=== PATIENT | female | born 1950 | race Caucasian/White ===

== ENCOUNTER 2021-10-22 04:33 | Emergency (ER) | payer MEDICARE, MEDICAID, SELFPAY ==
[2021-10-22] VITALS (7 sets, daily range): BP systolic 122–164; BP diastolic 57–93; PULSE 60–103; RESP 16–20; TEMP 36.4–36.8; O2SAT 96–99; BMI 26.2
--- NOTE | 2021-10-22 04:48 | ECG_ITS ---
APPROVED REPORT Exam: Resting ECG HR:93 bpm ECG Measurements Heart Rate 93 AXES QRSd 100 QRS 2 QT 351 T 79 QTc 402 Conclusion ATRIAL FIBRILLATION INCOMPLETE RIGHT BUNDLE BRANCH BLOCK [90+ ms QRS DURATION, TERMINAL R IN V1/V2, 40+ ms S IN I/aVL/V4/V5/V6] SEPTAL MYOCARDIAL INFARCTION , PROBABLY OLD [40+ ms Q WAVE IN V1/V2] ABNORMAL ECG UNCONFIRMED REPORT Electronically signed by : El German MD 10/23/2021 10:11:49
--- NOTE | 2021-10-22 04:57 | XR_ITS ---
PROCEDURE INFORMATION: Exam: XR Chest Exam date and time: 10/22/2021 5:25 AM Age: 71 years old Clinical indication: Sternal or substernal pain; Prior surgery; Additional info: Chest pain TECHNIQUE: Imaging protocol: XR of the chest. Views: 2 views. COMPARISON: No relevant prior studies available. FINDINGS: Lungs: No acute appearing consolidation or airspace disease. Pleural spaces: No pleural effusion. No pneumothorax. Heart/Mediastinum: No acute findings or cardiomegaly. Bones/joints: Status post sternotomy. Degenerative changes in the thoracic spine. IMPRESSION: No acute cardiopulmonary findings.
--- NOTE | 2021-10-22 05:02 | CT_ITS ---
PROCEDURE INFORMATION: Exam: CT Abdomen And Pelvis With Contrast Exam date and time: 10/22/2021 5:37 AM Age: 71 years old Clinical indication: Abdominal pain; Patient HX: Recently dx with UTI TECHNIQUE: Imaging protocol: Computed tomography of the abdomen and pelvis with contrast. Radiation optimization: All CT scans at this facility use at least one of these dose optimization techniques: automated exposure control; mA and/or kV adjustment per patient size (includes targeted exams where dose is matched to clinical indication); or iterative reconstruction. Contrast material: ISOVUE; Contrast volume: 75 ml; Contrast route: IV; COMPARISON: CR XR CHEST 2V 10/22/2021 5:25 AM FINDINGS: Liver: No acute findings. No mass. Gallbladder and bile ducts: The patient is status post cholecystectomy. Pancreas: No acute findings, focal abnormality or ductal dilation. Spleen: Calcified granulomata in the spleen. Adrenal glands: Normal. No mass. Kidneys and ureters: Multiple bilateral simple appearing renal cysts. No enhancing renal lesion. No obstructive uropathy. Stomach and bowel: Uncomplicated duodenal diverticulum. No bowel obstruction. Appendix: No evidence of appendicitis. Intraperitoneal space: No free air. No significant fluid collection. Arteries: Unremarkable. No abdominal aortic aneurysm. Lymph nodes: No pathologically enlarged lymph nodes. Urinary bladder: Borderline diffuse urinary bladder wall thickening. Reproductive: Unremarkable as visualized. Bones/joints: No acute fracture. Soft tissues: No acute findings. IMPRESSION: 1. Mild urinary bladder wall thickening which is consistent with patient's history. 2. Other chronic changes as described. COMMENTS: Consistent with the [employer]'s Incidental Findings Committee white paper (J [employer] 2018): Any incidental renal lesion less than 1 cm or classified as too small to characterize, or any incidental cystic renal lesion characterized as simple-appearing, is likely benign. No follow-up imaging is recommended for these lesions per consensus recommendations based on imaging criteria.
[2021-10-22 05:07] LABS: Basophils # 0.1 K/mm3 (0-0.2); Basophils % 1.2 % (0.1-2.0); Eosinophils # 0.2 K/mm3 (0.0-0.4); Eosinophils % 2.8 % (0.1-12.0); Hemoglobin 12.6 g/dL (12.2-16.2); Lymphocytes # 1.8 K/mm3 (0.7-4.5); Lymphocytes % 22.2 % (10-50); Mean Corpuscular HGB Conc 32.4 g/dL (31.8-35.4); Mean Corpuscular Hemoglobin 30.2 pg (27.0-31.2); Mean Corpuscular Volume 93.3 fl (81-99); Mean Platelet Volume 8.7 fl (7.4-10.4); Monocytes # 0.4 K/mm3 (0.1-1.0); Monocytes % 5.5 % (1.7-9.3); Neutrophils # 5.5 K/mm3 (1.8-7.8); Neutrophils % 68.2 % (37.0-80.0); Platelet Count 248 K/mm3 (142-424); Red Blood Count 4.18 M/mm3 (4.20-5.40); Red Cell Distribution Width 15.4 % (11.5-17.5)
[2021-10-22 05:13] LABS: Alanine Aminotransferase 26 U/L (12-78); Albumin Level 4.6 g/dl (3.5-5.0); Albumin/Globulin Ratio 1.5 (1.1-1.8); Alkaline Phosphatase 75 U/L (38-126); Anion Gap 11.6 mEq/L (5-15); Aspartate Amino Transferase 30 U/L (14-36); Bilirubin,Total 0.8 mg/dl (0.2-1.3); Blood Urea Nitrogen 20 mg/dl (7-17); Calcium 9.6 mg/dl (8.4-10.2); Carbon Dioxide 31 mmol/L (22.0-30.0); Chloride 98 mmol/L (98-107); Creatinine Clearance Estimated 39 mL/min (50-200); Estimated Glomerular Filt Rate 40 ml/min (>60); GFR (African American) 49 ML/MIN (>60); Glucose 128 mg/dl (74-100); Potassium 3.6 mmoL/L (3.5-5.1); Sodium 137 mmol/L (136-145); Total Protein,Serum 7.6 g/dl (6.3-8.2)
[2021-10-22 05:14] LABS: Lactic Acid 1.1 mmol/L (0.7-2.1)
[2021-10-22 05:15] LABS: INR 3.72 (0.9-1.1); Prothrombin Time 38.1 seconds (10.1-12.5)
[2021-10-22 05:18] LABS: C-Reactive Protein 6.5 mg/L (0-4)
[2021-10-22 05:18] LABS: Bilirubin,Urine Negative (Negative); Blood, Urine TRACE-I (Negative); Color,Urine YELLOW (Yellow); Glucose,Urine (UA) Negative (Negative); Ketones,Urine Negative (Negative); Leukocyte Esterase,Urine 3+ (Negative); Microscopic, Urine URINE MICROSCOPIC (MICROSCOPIC); Nitrate,Urine POSITIVE (Negative); PH,Urine 5.5 (5.0-8.5); Protein,Urine Negative (Negative); Urobilinogen,Urine 0.2 EU/dl (0.2)
[2021-10-22 05:19] LABS: Appearance,Urine Slightly Cloudy (Clear)
[2021-10-22 05:25] LABS: NT Pro Brain Natriuretic Pep. 2030 pg/mL (0-125)
[2021-10-22 05:27] LABS: Bacteria,Urine 3+ /lpf
[2021-10-22 05:31] LABS: Troponin I < 0.01 ng/ml (0.00-0.034)
[2021-10-22 05:32] LABS: Procalcitonin 0.097 ng/mL (0.0-2.0)
--- NOTE | 2021-10-22 05:35 | PC.NURSE ---
patient to CT
--- NOTE | 2021-10-22 06:05 | PC.NURSE ---
patient back from CT, given warm blanket and turned lights off
--- NOTE | 2021-10-22 06:07 | PC.NURSE ---
NO CHANGES IN ASSESSMENT. FAMILY AT BEDSIDE. WCM.
--- NOTE | 2021-10-22 07:02 | PC.NURSE ---
REPORT TO Phong LIU RN.
--- NOTE | 2021-10-22 07:03 | HMH.EDNVD ---
ED Disposition Clinical Impression: Renal insufficiency Urinary tract infection Qualifiers: Urinary tract infection type: site unspecified Hematuria presence: without hematuria Qualified Code(s): N39.0 - Urinary tract infection, site not specified Atrial fibrillation Qualifiers: Atrial fibrillation type: unspecified chronic Qualified Code(s): I48.20 - Chronic atrial fibrillation, unspecified Disposition: Home, Self-Care Condition on Discharge: Good Instructions: DI for Urinary Tract Infection (UTI) Additional Instructions: call pcp for follow up this week and urine culture results Prescriptions: cephALEXin [cephALEXin 500mg capsule*] 500 mg PO TID #30 cap Transmission Status: Pending to [facility] Referrals: Galo Dhillon [Primary Care Provider] - - Critical Care Critical Care Time: No Attestation: On 10/22/21, the high probability of a clinically significant, sudden or life threatening deterioration of the following system(s) required my full and direct attention, intervention and personal management. The time I documented below is in addition to time spent performing reported procedures but includes the following listed in this critical care notation. Medical Decision Making - Medical Records Medical records reviewed: Yes: I reviewed the patient's medical records. - Oh Inquiry Pt receiving controlled substance: No Vital Signs: 10/22/21 04:35 10/22/21 05:29 10/22/21 05:30 Temperature 97.6 F Temperature Source Oral Pulse Rate 79 82 Pulse Rate [Left Radial] 103 H Respiratory Rate 18 17 16 Blood Pressure 162/81 H 138/72 Blood Pressure [Right Arm] 154/65 H Blood Pressure Mean [Right Arm] 94 Blood Pressure Source [Right Arm] Automatic Cuff Blood Pressure Position [Right Arm] Sitting 02 Sat by Pulse Oximetry 98 97 96 Oxygen Delivery Method Room Air Room Air 10/22/21 06:01 10/22/21 06:31 10/22/21 07:08 Temperature Temperature Source Pulse Rate 76 60 83 Pulse Rate [Left Radial] Respiratory Rate 20 20 Blood Pressure 143/76 H 122/57 L 164/93 H Blood Pressure [Right Arm] Blood Pressure Mean [Right Arm] Blood Pressure Source [Right Arm] Blood Pressure Position [Right Arm] 02 Sat by Pulse Oximetry 99 96 96 Oxygen Delivery Method - Lab Data Lab results reviewed: Yes: I reviewed the patient's lab results. Lab Results 10/22/21 04:40: WBC 8.0, RBC 4.18 L, Hgb 12.6, Hct 39.0, MCV 93.3, MCH 30.2, MCHC 32.4, RDW 15.4, Plt Count 248, MPV 8.7, Neut % (Auto) 68.2, Lymph % (Auto) 22.2, [place] % (Auto) 5.5, Eos % (Auto) 2.8, Baso % (Auto) 1.2, Neut # (Auto) 5.5, Lymph # (Auto) 1.8, [place] # (Auto) 0.4, Eos # (Auto) 0.2, Baso # (Auto) 0.1, ESR 28 10/22/21 04:40: Sodium 137, Potassium 3.6, Chloride 98, Carbon Dioxide 31 H, Anion Gap 11.6, BUN 20 H, Creatinine 1.30 H, Estimated Creat Clear 39, Estimated GFR 40 L, Est GFR ( Amer) 49 L, Glucose 128 H, Calcium 9.6, Total Bilirubin 0.8, AST 30, ALT 26, Alkaline Phosphatase 75, Troponin I < 0.01, C-Reactive Protein 6.5 H, Total Protein 7.6, Albumin 4.6, Globulin 3.0, Albumin/Globulin Ratio 1.5, Procalcitonin 0.097 10/22/21 04:40: Lactate 1.1 10/22/21 04:40: PT 38.1 H, INR 3.72 H 10/22/21 04:40: NT-Pro-B Natriuret Pep 2030 H 10/22/21 05:11: Urine Color Yellow, Urine Appearance Slightly cloudy, Urine pH 5.5, Ur Specific [place] 1.010, Urine Protein Negative, Urine Glucose (UA) Negative, Urine Ketones Negative, Urine Blood Trace-i, Urine Nitrate Positive, Urine Bilirubin Negative, Urine Urobilinogen 0.2, Ur Leukocyte Esterase 3+ A, Urine WBC 5-10, Urine Bacteria 3+ Result diagrams: 10/22/21 04:40 10/22/21 04:40 Orders (Tests/Meds): ED MEDICATIONS Generic Name Dose Route Start Last Admin Trade Name Freq PRN Reason Stop Dose Admin Ceftriaxone Sodium 1 gm/ 50 mls @ 100 mls/hr 10/22/21 05:30 10/22/21 06:05 Sodium Chloride IV 11/05/21 05:29 100 mls/hr Q24H LIZZETTE Administration Discontinued Medicatio
[2021-10-22 07:11] LABS: Erythrocyte Sedimentation Rate 28 mm/hr (0-30)
[2021-10-22 08:22] LABS: T4 (Thyroxine) 12.2 ug/dl (5.53-11.0)
[2021-10-22 08:36] LABS: Thyroid Stimulating Hormone 2.88 uIU/mL (0.465-4.68)
== END 2021-10-22 08:10 | disposition home or self-care (01) ==
PROVIDERS: Emergency Provider Emergency Medicine; PCP Family Medicine
DX: N30.00 Acute cystitis without hematuria (principal); N28.9 Disorder of kidney and ureter, unspecified; I48.20 Chronic atrial fibrillation, unspecified; R06.02 Shortness of breath; E11.9 Type 2 diabetes mellitus without complications; E78.5 Hyperlipidemia, unspecified; I10 Essential (primary) hypertension; Z79.899 Other long term (current) drug therapy
CPT/HCPCS: 71046; 74177; 80053; 80162; 81001; 83605; 83880; 84145; 84436; 84443; 84484; 85025; 85610; 85651; 86140; 87040; 87086; 87088; 87186; 93005; 96365; 96367; 99284; J0696; Q9967

== ENCOUNTER 2021-11-01 13:39 | Emergency (ER) | payer MEDICARE, MEDICAID, SELFPAY ==
[2021-11-01] VITALS (7 sets, daily range): BP systolic 128–154; BP diastolic 56–77; PULSE 70–95; RESP 16–17; TEMP 36.9; O2SAT 95–98; BMI 25.6
--- NOTE | 2021-11-01 15:06 | CT_ITS ---
FINAL REPORT TECHNIQUE: After the administration of oral and intravenous contrast, axial images were obtained through the abdomen and pelvis by computed tomography. The study was performed with techniques to keep radiation dose as low as reasonably achievable, (ALARA). Individual dose reduction techniques using automated exposure control or adjustment of mA and/or kV according to the patient's size were employed. CLINICAL HISTORY: abdominal pain, bilateral flank pain COMPARISON: 10/22/2021 FINDINGS: Abdomen: The lung bases are clear. The liver parenchyma is homogeneous. The gallbladder is absent. Spleen measures in the upper limits of normal in size. The pancreas is normal. There is mild bilateral adrenal hyperplasia. There are multiple bilateral benign-appearing cysts in both kidneys. The aorta is normal in caliber. There is no free fluid or adenopathy. Pelvis: The appendix is normal. The uterus is present and lies eccentric to the left. The urinary bladder is unremarkable. There is no free fluid or adenopathy. IMPRESSION: No acute intra-abdominal process. Reviewed, Interpreted and Dictated by Harmeet Vinson MD Transcribed by Tali Almaraz Authenticated by Harmeet Vinson MD on 11/01/2021 04:25:20 PM [facility]
--- NOTE | 2021-11-01 15:22 | PC.NURSE ---
Removed rader that was placed last week. able to pull 10ml and remove with no issue, everything in tact. Advised pt that when she needed to urinate we wanted to collect a sample.
[2021-11-01 15:37] LABS: Chloride 106 mmol/L (98-107); Sodium 140 mmol/L (136-145)
[2021-11-01 15:40] LABS: Alanine Aminotransferase 25 U/L (12-78); Albumin Level 4.2 g/dl (3.5-5.0); Albumin/Globulin Ratio 1.6 (1.1-1.8); Alkaline Phosphatase 84 U/L (38-126); Aspartate Amino Transferase 32 U/L (14-36); Bilirubin,Total 0.6 mg/dl (0.2-1.3); Blood Urea Nitrogen 21 mg/dl (7-17); Calcium 9.3 mg/dl (8.4-10.2); Carbon Dioxide 25 mmol/L (22.0-30.0); Creatinine Clearance Estimated 39 mL/min (50-200); Estimated Glomerular Filt Rate 40 ml/min (>60); GFR (African American) 49 ML/MIN (>60); Globulin 2.7 g/dL (1.3-3.2); Glucose 157 mg/dl (74-100); Lactic Acid 2.2 mmol/L (0.7-2.1); Total Protein,Serum 6.9 g/dl (6.3-8.2)
[2021-11-01 15:41] LABS: Basophils # 0.1 K/mm3 (0-0.2); Basophils % 0.9 % (0.1-2.0); Eosinophils # 0.1 K/mm3 (0.0-0.4); Eosinophils % 1.3 % (0.1-12.0); Hematocrit 35.6 % (37.0-47.0); Hemoglobin 11.5 g/dL (12.2-16.2); INR 2.04 (0.9-1.1); Lipase 338 U/L (23-300); Lymphocytes # 1.6 K/mm3 (0.7-4.5); Lymphocytes % 14.4 % (10-50); Mean Corpuscular HGB Conc 32.4 g/dL (31.8-35.4); Mean Corpuscular Hemoglobin 30.2 pg (27.0-31.2); Mean Corpuscular Volume 93.2 fl (81-99); Mean Platelet Volume 9.1 fl (7.4-10.4); Monocytes # 0.5 K/mm3 (0.1-1.0); Monocytes % 4.7 % (1.7-9.3); Neutrophils % 78.7 % (37.0-80.0); Platelet Count 311 K/mm3 (142-424); Prothrombin Time 21.9 seconds (10.1-12.5); Red Blood Count 3.82 M/mm3 (4.20-5.40); Red Cell Distribution Width 15.4 % (11.5-17.5); White Blood Count 11.4 K/mm3 (4.8-10.8)
--- NOTE | 2021-11-01 15:57 | PC.NURSE ---
pt return from CT
--- NOTE | 2021-11-01 16:37 | PC.NURSE ---
Updated pt on POC. Advised we were waiting on CT
--- NOTE | 2021-11-01 17:25 | HMH.EDGENADL ---
ED Disposition Clinical Impression: Abdominal pain Qualifiers: Abdominal location: lower abdomen, unspecified Qualified Code(s): R10.30 - Lower abdominal pain, unspecified Disposition: Home, Self-Care Condition on Discharge: Good Additional Instructions: Follow-up with your PCP within the next week as well as your urologist appointment. Return with new or concerning symptoms. Referrals: Galo Dhillon [Primary Care Provider] - - Critical Care Critical Care Time: No Attestation: On 11/01/21, the high probability of a clinically significant, sudden or life threatening deterioration of the following system(s) required my full and direct attention, intervention and personal management. The time I documented below is in addition to time spent performing reported procedures but includes the following listed in this critical care notation. Medical Decision Making - Medical Records Medical records reviewed: Yes: I reviewed the patient's medical records. - Oh Inquiry Pt receiving controlled substance: No Vital Signs: 11/01/21 13:40 11/01/21 14:20 11/01/21 15:35 Temperature 98.4 F Temperature Source Oral Pulse Rate 80 73 Pulse Rate [Right] 95 H Respiratory Rate 16 16 16 Blood Pressure 128/74 129/56 L Blood Pressure [Right Arm] 134/75 Blood Pressure Mean [Right Arm] 94 Blood Pressure Source Automatic Cuff Automatic Cuff Blood Pressure Source [Right Arm] Automatic Cuff Blood Pressure Position Sitting Sitting Blood Pressure Position [Right Arm] Sitting 02 Sat by Pulse Oximetry 98 98 98 Oxygen Delivery Method Room Air Room Air Room Air 11/01/21 16:00 11/01/21 17:00 11/01/21 18:00 Temperature Temperature Source Pulse Rate 73 81 78 Pulse Rate [Right] Respiratory Rate 16 16 17 Blood Pressure 142/64 H 154/74 H 131/77 Blood Pressure [Right Arm] Blood Pressure Mean [Right Arm] Blood Pressure Source Automatic Cuff Automatic Cuff Blood Pressure Source [Right Arm] Blood Pressure Position Sitting Sitting Blood Pressure Position [Right Arm] 02 Sat by Pulse Oximetry 98 95 98 Oxygen Delivery Method Room Air Room Air Room Air - Lab Data Lab Results 11/01/21 15:19: WBC 11.4 H, RBC 3.82 L, Hgb 11.5 L, Hct 35.6 L, MCV 93.2, MCH 30.2, MCHC 32.4, RDW 15.4, Plt Count 311, MPV 9.1, Neut % (Auto) 78.7, Lymph % (Auto) 14.4, [place] % (Auto) 4.7, Eos % (Auto) 1.3, Baso % (Auto) 0.9, Neut # (Auto) 9.0 H, Lymph # (Auto) 1.6, [place] # (Auto) 0.5, Eos # (Auto) 0.1, Baso # (Auto) 0.1 11/01/21 15:19: PT 21.9 H, INR 2.04 H 11/01/21 15:19: Sodium 140, Potassium 4.0, Chloride 106, Carbon Dioxide 25, Anion Gap 13.0, BUN 21 H, Creatinine 1.30 H, Estimated Creat Clear 39, Estimated GFR 40 L, Est GFR ( Amer) 49 L, Glucose 157 H, Calcium 9.3, Total Bilirubin 0.6, AST 32, ALT 25, Alkaline Phosphatase 84, Total Protein 6.9, Albumin 4.2, Globulin 2.7, Albumin/Globulin Ratio 1.6 11/01/21 15:19: Lactate 2.2 H 11/01/21 15:19: Lipase 338 H 11/01/21 17:58: Urine Color Yellow, Urine Appearance Clear, Urine pH 6.0, Ur Specific [place] <= 1.005, Urine Protein Negative, Urine Glucose (UA) Negative, Urine Ketones Negative, Urine Blood 2+, Urine Nitrate Negative, Urine Bilirubin Negative, Urine Urobilinogen 0.2, Ur Leukocyte Esterase 1+ A Result diagrams: 11/01/21 15:19 11/01/21 15:19 Orders (Tests/Meds): ED MEDICATIONS Generic Name Dose Route Start Last Admin Trade Name Freq PRN Reason Stop Dose Admin Ondansetron HCl 4 mg 11/01/21 15:09 11/01/21 15:30 Ondansetron 4mg/2ml Vial IV 12/01/21 15:08 4 mg Q6 PRN Administration Nausea And Vomiting Discontinued Medications Generic Name Dose Route Start Last Admin Trade Name Freq PRN Reason Stop Dose Admin Lactated Ringer's 500 mls @ 999 mls/hr 11/01/21 15:15 11/01/21 15:30 Lactated Ringer's 1000 Ml Bag IV 11/01/21 15:45 500 mls/hr .Q31M LIZZETTE Administration Iopamidol 75 ml 11/01/21 15:57 11/01/21 15:58 Iopamidol-370 (76%)
--- NOTE | 2021-11-01 17:37 | PC.NURSE ---
pt ambulated to restroom with standby assist, pt trying to urinate
--- NOTE | 2021-11-01 18:00 | PC.NURSE ---
Pt ambulating to restroom again with no issues.
[2021-11-01 18:03] LABS: Microscopic, Urine URINE MICROSCOPIC (MICROSCOPIC)
[2021-11-01 18:25] LABS: Appearance,Urine CLEAR (Clear); Bilirubin,Urine Negative (Negative); Blood, Urine 2+ (Negative); Color,Urine YELLOW (Yellow); Glucose,Urine (UA) Negative (Negative); Ketones,Urine Negative (Negative); Leukocyte Esterase,Urine 1+ (Negative); Nitrate,Urine Negative (Negative); Protein,Urine Negative (Negative); Specific Gravity, Urine <= 1.005 (1.005-1.030); Urobilinogen,Urine 0.2 EU/dl (0.2)
--- NOTE | 2021-11-01 18:38 | PC.NURSE ---
Advised pt that UA was back and MD would be reviewing results
[2021-11-01 18:47] LABS: Bacteria,Urine Trace /lpf
--- NOTE | 2021-11-01 18:51 | PC.NURSE ---
at [facility] discussing results with pt and daughter
[2021-11-01 19:26] LABS: Reflex Lactic Add Lactic Reflex
== END 2021-11-01 18:54 | disposition home or self-care (01) ==
PROVIDERS: Emergency Provider Emergency Medicine; PCP Family Medicine
DX: R10.30 Lower abdominal pain, unspecified (principal); I48.0 Paroxysmal atrial fibrillation; E11.9 Type 2 diabetes mellitus without complications; I10 Essential (primary) hypertension; E78.5 Hyperlipidemia, unspecified; Z79.899 Other long term (current) drug therapy; Z88.5 Allergy status to narcotic agent
CPT/HCPCS: 74177; 80053; 81001; 83605; 83690; 85025; 85610; 87086; 96374; 96375; 99284; J2405; Q9967

== ENCOUNTER → 2021-11-19 10:37 | Outpatient (CLI) | payer MEDICARE, MEDICAID, SELFPAY ==
[2021-11-19 11:07] LABS: INR 1.89 (0.9-1.1); Prothrombin Time 20.4 seconds (10.1-12.5)
== END ==
PROVIDERS: PCP Family Medicine; Visit Provider Family Medicine
DX: Z51.81 Encounter for therapeutic drug level monitoring (principal); Z79.01 Long term (current) use of anticoagulants; I48.20 Chronic atrial fibrillation, unspecified
CPT/HCPCS: 36415; 85610

== ENCOUNTER → 2021-12-05 11:16 | Outpatient (CLI) | payer MEDICARE, MEDICAID, SELFPAY ==
[2021-12-05 12:16] LABS: INR 2.31 (0.9-1.1); Prothrombin Time 24.5 seconds (10.1-12.5)
== END ==
PROVIDERS: PCP Family Medicine; Visit Provider Family Medicine
DX: Z51.81 Encounter for therapeutic drug level monitoring (principal); I48.20 Chronic atrial fibrillation, unspecified; Z79.01 Long term (current) use of anticoagulants
CPT/HCPCS: 36415; 85610

== ENCOUNTER → 2021-12-27 14:59 | Outpatient (CLI) | payer MEDICARE, MEDICAID, SELFPAY ==
[2021-12-27 15:32] LABS: INR 2.43 (0.9-1.1); Prothrombin Time 25.7 seconds (10.1-12.5)
== END ==
PROVIDERS: PCP Family Medicine; Visit Provider Family Medicine
DX: Z51.81 Encounter for therapeutic drug level monitoring (principal); Z79.01 Long term (current) use of anticoagulants; I48.20 Chronic atrial fibrillation, unspecified
CPT/HCPCS: 36415; 85610

== ENCOUNTER → 2022-01-13 10:27 | Outpatient (CLI) | payer MEDICARE, MEDICAID, SELFPAY ==
[2022-01-13 11:57] LABS: INR 1.98 (0.9-1.1); Prothrombin Time 21.3 seconds (10.1-12.5)
== END ==
PROVIDERS: PCP Family Medicine; Visit Provider Family Medicine
DX: Z51.81 Encounter for therapeutic drug level monitoring (principal); Z79.01 Long term (current) use of anticoagulants; I48.20 Chronic atrial fibrillation, unspecified
CPT/HCPCS: 36415; 85610

== ENCOUNTER → 2022-01-28 11:15 | Outpatient (CLI) | payer MEDICARE, MEDICAID, SELFPAY | PROVIDERS: PCP Family Medicine; Visit Provider Family Medicine | DX: Z51.81 Encounter for therapeutic drug level monitoring (principal); Z79.01 Long term (current) use of anticoagulants; I48.20 Chronic atrial fibrillation, unspecified | CPT/HCPCS: 36415; 85610 ==

== ENCOUNTER → 2022-02-11 11:02 | Outpatient (CLI) | payer MEDICARE, MEDICAID, SELFPAY ==
[2022-02-11 12:57] LABS: INR 2.09 (0.9-1.1); Prothrombin Time 22.4 seconds (10.1-12.5)
== END ==
PROVIDERS: PCP Family Medicine; Visit Provider Family Medicine
DX: Z51.81 Encounter for therapeutic drug level monitoring (principal); Z79.01 Long term (current) use of anticoagulants; I48.20 Chronic atrial fibrillation, unspecified
CPT/HCPCS: 36415; 85610

== ENCOUNTER → 2022-02-25 10:36 | Outpatient (CLI) | payer MEDICARE, MEDICAID, SELFPAY ==
[2022-02-25 14:06] LABS: INR 2.04 (0.9-1.1); Prothrombin Time 21.9 seconds (10.1-12.5)
== END ==
PROVIDERS: PCP Family Medicine; Visit Provider Family Medicine
DX: Z51.81 Encounter for therapeutic drug level monitoring (principal); Z79.01 Long term (current) use of anticoagulants; I48.20 Chronic atrial fibrillation, unspecified
CPT/HCPCS: 36415; 85610

== ENCOUNTER → 2022-03-11 12:18 | Outpatient (CLI) | payer MEDICARE, MEDICAID, SELFPAY ==
[2022-03-11 13:14] LABS: INR 2.03 (0.9-1.1); Prothrombin Time 21.1 seconds (10.1-12.5)
== END ==
PROVIDERS: PCP Family Medicine
DX: Z51.81 Encounter for therapeutic drug level monitoring (principal); Z79.01 Long term (current) use of anticoagulants; I48.20 Chronic atrial fibrillation, unspecified
CPT/HCPCS: 36415; 85610

== ENCOUNTER → 2022-03-26 10:37 | Outpatient (CLI) | payer MEDICARE, MEDICAID, SELFPAY ==
[2022-03-26 12:59] LABS: INR 3.54 (0.9-1.1); Prothrombin Time 35.6 seconds (10.1-12.5)
== END ==
PROVIDERS: PCP Family Medicine; Visit Provider Family Medicine
DX: Z51.81 Encounter for therapeutic drug level monitoring (principal); Z79.01 Long term (current) use of anticoagulants; I48.20 Chronic atrial fibrillation, unspecified
CPT/HCPCS: 36415; 85610

== ENCOUNTER 2023-04-27 17:22 | Emergency (ER) | payer MEDICARE, MEDICAID, SELFPAY ==
[2023-04-27] VITALS (7 sets, daily range): BP systolic 167–207; BP diastolic 63–78; PULSE 67–88; RESP 18–20; TEMP 36.7; O2SAT 97–100; BMI 25.6
--- NOTE | 2023-04-27 18:03 | XR_ITS ---
PROCEDURE INFORMATION: Exam: XR Chest Exam date and time: 04/27/2023 6:09 PM Age: 72 years old Clinical indication: Cough; Additional info: Dysphagia TECHNIQUE: Imaging protocol: Radiologic exam of the chest. Views: 2 views. COMPARISON: CR XR CHEST 2V 10/22/2021 5:25 AM FINDINGS: Lungs: Unchanged bilateral punctate calcified granulomas. No acute airspace disease. Pleural spaces: Normal No pleural effusion. No pneumothorax. Heart/Mediastinum: Normal. No cardiomegaly. Vasculature: Tortuous atherosclerotic thoracic aorta. Bones/joints: Status post sternotomy. IMPRESSION: No acute findings.
--- NOTE | 2023-04-27 18:03 | HMH.EDGENADL ---
Discharge Plan Disposition Patient Disposition: Home, Self-Care Prescriptions Prescriptions: No Action atorvastatin 20 mg tablet 20 mg PO QDAY lisinopril 20 mg tablet 2.5 mg PO QDAY furosemide 40 MG tablet 40 mg PO QDAY metoprolol tartrate 75 MG tablet 12.5 mg PO BID clopidogrel 75 MG tablet 75 mg PO DAILY cephalexin 500 MG capsule 500 mg PO TID hydrocodone-acetaminophen 1 EACH tablet 1 tab PO BID aspirin 81 MG tablet,delayed release (DR/EC) 81 mg PO DAILY spironolactone 25 MG tablet 25 mg PO DAILY gabapentin 100 MG capsule 100 mg PO BID sertraline 50 MG tablet 50 mg PO DAILY diazepam 5 MG tablet 5 mg PO BID Rx Instructions: morning and 3 pm Referrals Follow up/Referrals: Galo Dhillon [Primary Care Provider] - See instructions Everette Jeong MD [Staff Physician] - See instructions Activity Restrictions/Add. Instructions Additional Instructions/Restrictions: At this time it was felt you are safe to be discharged home. If new or worsening symptoms please do not hesitate to return the emergency department. Please follow-up with general surgery as soon as you are able Clinical Impressions Clinical Impression: Dysphagia, Elevated lipase Discharge ED Provider: Devan Colon General Adult HPI General Chief complaint: Recheck/Abnormal Lab/Rx Stated complaint: feels like throat closing Time Seen by Provider: 04/27/23 17:29 Mode of Arrival: Ambulatory Source of Information: Patient Limitations: No Limitations Description of Symptoms (Recalled from ER Triage Doc. by RN): Patient reports she has had dry mouth for 2-3 days and today feels like her throat is closing up. History of Present Illness HPI narrative: Patient is a 72-year-old female with multiple comorbidities who presents emergency department for evaluation of sensation of her throat closing up. Patient states that over the last 2 to 3 months she has had dysphagia to pills, decreased p.o. intake, weight loss. Ultimately due to feeling of her throat closing up she presents here for evaluation. No new medications, no new exposures. Related Data Home Medications Medication Instructions Recorded Confirmed atorvastatin 20 mg tablet 20 mg PO QDAY High cholesterol 07/16/17 11/01/21 lisinopril 20 mg tablet 2.5 mg PO QDAY High blood pressure 07/16/17 11/01/21 furosemide 40 mg tablet 40 mg PO QDAY Fluid 10/22/21 11/01/21 metoprolol tartrate 75 mg tablet 12.5 mg PO BID High blood pressure 10/22/21 11/01/21 aspirin 81 mg tablet,delayed 81 mg PO DAILY heart 11/01/21 11/01/21 release cephalexin 500 mg capsule 500 mg PO TID uti 11/01/21 11/01/21 clopidogrel 75 mg tablet 75 mg PO DAILY heart 11/01/21 11/01/21 diazepam 5 mg tablet 5 mg PO BID mood 11/01/21 11/01/21 gabapentin 100 mg capsule 100 mg PO BID . 11/01/21 11/01/21 hydrocodone 5 mg-acetaminophen 325 1 tab PO BID Pain 11/01/21 11/01/21 mg tablet sertraline 50 mg tablet 50 mg PO DAILY mood 11/01/21 11/01/21 spironolactone 25 mg tablet 25 mg PO DAILY Fluid 11/01/21 11/01/21 Allergies Allergy/AdvReac Type Severity Reaction Status Date / Time acetaminophen [From Percocet] Allergy Verified 10/06/18 11:09 oxycodone [From Percocet] Allergy Verified 10/06/18 11:09 [facility] Disclaimer: The information contained in this section may have been updated after the patient was seen, as this information can be updated by other users. Social History Smoking Status: Never smoker alcohol intake: never substance use type: denies use current occupational status: retired and disabled Travel in the last 8 weeks: Inside the [place] ROS Obtained: Yes Systems reviewed as appropriate & no additional complaints except as documented Physical Exam General General appearance: alert and in no apparent distress Head Head exam: atraumatic and normocephalic Eye Eye exam: Present PERRL and EOMI ENT ENT exam
[2023-04-27 18:24] LABS: Alanine Aminotransferase 37 U/L (12-78); Albumin Level 4.6 g/dl (3.5-5.0); Albumin/Globulin Ratio 1.4 (1.1-1.8); Alkaline Phosphatase 107 U/L (38-126); Anion Gap 16.1 mEq/L (5-15); Aspartate Amino Transferase 40 U/L (14-36); Bilirubin,Total 0.8 mg/dl (0.2-1.3); Blood Urea Nitrogen 24 mg/dl (7-17); Calcium 9.3 mg/dl (8.4-10.2); Carbon Dioxide 24 mmol/L (22.0-30.0); Chloride 100 mmol/L (98-107); Creatinine Clearance Estimated 41 mL/min (50-200); Estimated Glomerular Filt Rate 44 ml/min (>60); GFR (African American) 53 ML/MIN (>60); Globulin 3.2 g/dL (1.3-3.2); Glucose 209 mg/dl (74-100); Lipase 348 U/L (23-300); Potassium 4.1 mmoL/L (3.5-5.1); Sodium 136 mmol/L (136-145); Total Protein,Serum 7.8 g/dl (6.3-8.2)
[2023-04-27 19:16] LABS: Coronavirus 19, PCR Not Detected (NotDetected); Influenza A, PCR Not Detected (NotDetected); Influenza B, PCR Not Detected (NotDetected)
[2023-04-27 19:38] LABS: Basophils # 0.1 K/mm3 (0-0.2); Basophils % 0.5 % (0.1-2.0); Eosinophils # 0.1 K/mm3 (0.0-0.4); Hematocrit 36.8 % (37.0-47.0); Hemoglobin 12.4 g/dL (12.2-16.2); Lymphocytes # 1.9 K/mm3 (0.7-4.5); Lymphocytes % 17.4 % (10-50); Mean Corpuscular HGB Conc 33.7 g/dL (31.8-35.4); Mean Corpuscular Hemoglobin 31.4 pg (27.0-31.2); Mean Corpuscular Volume 93.2 fl (81-99); Mean Platelet Volume 9.7 fl (7.4-10.4); Monocytes # 0.7 K/mm3 (0.1-1.0); Monocytes % 5.9 % (1.7-9.3); Neutrophils # 8.4 K/mm3 (1.8-7.8); Neutrophils % 75.3 % (37.0-80.0); Platelet Count 316 K/mm3 (142-424); Red Blood Count 3.95 M/mm3 (4.20-5.40); Red Cell Distribution Width 14.3 % (11.5-17.5); White Blood Count 11.2 K/mm3 (4.8-10.8)
[2023-04-27 19:50] LABS: Microscopic, Urine URINE MICROSCOPIC (MICROSCOPIC)
[2023-04-27 19:56] LABS: Appearance,Urine CLEAR (Clear); Bilirubin,Urine Negative (Negative); Blood, Urine TRACE-I (Negative); Color,Urine YELLOW (Yellow); Glucose,Urine (UA) 1+ (Negative); Ketones,Urine Negative (Negative); Leukocyte Esterase,Urine Negative (Negative); Nitrate,Urine Negative (Negative); Protein,Urine Negative (Negative); Specific Gravity, Urine <= 1.005 (1.005-1.030); Urobilinogen,Urine 0.2 EU/dl (0.2)
[2023-04-27 20:05] LABS: Bacteria,Urine Trace /lpf; RBC,Urine Occasional #/hpf (0-3); WBC,Urine Occasional #/hpf (0-3)
== END 2023-04-27 20:37 | disposition home or self-care (01) ==
PROVIDERS: Emergency Provider Emergency Medicine; PCP Family Medicine
DX: R13.10 Dysphagia, unspecified (principal); R74.8 Abnormal levels of other serum enzymes
CPT/HCPCS: 71046; 80053; 81001; 83690; 85025; 87636; 96360; 99285